=== PATIENT | female | born 2005 | race Caucasian/White ===

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

== ENCOUNTER → 2024-11-20 | Outpatient (CLI) | payer MEDICAID, OTHER | LOC: M RAD 13:30 | PROVIDERS: ATTEND Physician Assistant | DX: R07.89 Other chest pain (principal) ==

== ENCOUNTER 2025-07-21 15:23 | Emergency (ER) | payer MEDICAID ==
[~2025-07-21] VITALS: Ht 162.6 cm; Wt 41.9 kg
[2025-07-21 16:44] LABS: URINE PREG TEST NEGATIVE (NEGATIVE)
[2025-07-21] MEDS: MAALOX 30 ML SUSP *UDC PO ONE (17:16)
[2025-07-21] MEDS: LIDOCAINE VISCOUS 2% SOLN 15 ML UDC PO ONE (17:17)
[2025-07-21] MEDS: PANTOPRAZOLE 40MG VIAL IV ONE (17:17)
[2025-07-21] MEDS: SUCRALFATE SUSP 1GM/10ML UD PO ONE (17:17)
[2025-07-21 17:43] LABS: BASO # 0.1 10^3/uL (0.0-0.2); BASO % 0.7 % (0.0-1.0); EOS # 0.0 10^3/uL (0.0-0.5); EOS % 0.1 % (0.0-3.0); LYMPH # 2.3 10^3/uL (1.5-5.0); LYMPH % 26.5 % (24.0-44.0); MONO # 0.6 10^3/uL (0.0-0.8); MONO % 7.1 % (2.0-8.0); NEUTROPHILS # 5.6 10^3/uL (1.5-8.5); NEUTROPHILS % 65.2 % (36.0-66.0); PLATELET COUNT, AUTOMATED 232 10^3/uL (150-450)
[2025-07-21] MEDS ORDERED: ISOVUE-370 76% 100 ML VIAL As Ordered ONE (18:03)
[2025-07-21 18:09] LABS: CK-MB VALUE MASS < 1.0 NG/ML (<3.6); MAGNESIUM LEVEL 1.8 MG/DL (1.8-2.4)
[2025-07-21 18:12] LABS: CPK CREATINE PHOSPHOKINASE 115 U/L (34-145)
[2025-07-21 18:24] VITALS: O2SAT 100
[2025-07-21 18:25] VITALS: TEMP 99.4
[2025-07-21 18:48] VITALS: BP 118/62
[2025-07-21] MEDS ORDERED: OMEP40CA4 PO (19:27)
[2025-07-21] MEDS ORDERED: SUCR1TA PO (19:27)
[2025-07-21] MEDS ORDERED: ONDA-282 PO (19:27)
== END 2025-07-21 19:37 | disposition home or self-care (01) ==
LOC: M ED 15:23
DX: R07.9 Chest pain, unspecified (principal); K29.00 Acute gastritis without bleeding; I25.119 Atherosclerotic heart disease of native coronary artery with unspecified angina pectoris; Z88.0 Allergy status to penicillin; Z88.1 Allergy status to other antibiotic agents; Z79.899 Other long term (current) drug therapy
CPT/HCPCS: 71046; 71260; 80047; 82550; 82553; 83735; 84443; 84484; 84703; 85025; 93005; 96374; 99284; J2470; Q9967

== ENCOUNTER 2025-08-21 21:52 | Emergency (ER) | payer OTHER ==
[~2025-08-21] VITALS: Ht 162.6 cm; Wt 44.1 kg
[~2025-08-21 21:52] MED LIST changes: +OMEP40CA4 PO; +ONDA-282 PO; +SUCR1TA PO
[2025-08-21 22:22] VITALS: BP 133/88; TEMP 96.7; O2SAT 100
[2025-08-21 22:51] LABS: BASO # 0.1 10^3/uL (0.0-0.2); BASO % 0.4 % (0.0-1.0); EOS # 0.0 10^3/uL (0.0-0.5); EOS % 0.1 % (0.0-3.0); LYMPH # 3.0 10^3/uL (1.5-5.0); LYMPH % 19.5 % (24.0-44.0); MONO # 0.8 10^3/uL (0.0-0.8); MONO % 5.3 % (2.0-8.0); NEUTROPHILS # 11.4 10^3/uL (1.5-8.5); NEUTROPHILS % 74.3 % (36.0-66.0); PLATELET COUNT, AUTOMATED 276 10^3/uL (150-450)
[2025-08-21 23:22] LABS: ALT/SGPT 20 U/L (7.0-40); AST/SGOT 22 U/L (<34); CALCIUM LEVEL 10.9 MG/DL (8.5-10.1); CARBON DIOXIDE LEVEL 28 MMOL/L (20-31); CHLORIDE LEVEL 102 MMOL/L (98-107); CREATININE FOR GFR 0.73 MG/DL (0.55-1.30); GLOMERULAR FILTRATION RATE > 90.0 (>60); POTASSIUM SERUM 4.3 MMOL/L (3.5-5.1); SODIUM LEVEL 140 MMOL/L (136-145)
[2025-08-21 23:29] LABS: HCG, SERUM QUALITATIVE NEGATIVE (NEGATIVE)
[2025-08-23] MEDS ORDERED: DICY-61 PO (17:02)
[2025-08-23] MEDS ORDERED: ONDA-282 PO (17:02)
[2025-08-23] MEDS ORDERED: PROT20TA11 PO (17:02)
== END 2025-08-22 00:50 | disposition left against medical advice (07) ==
LOC: M ED 21:52
DX: Z53.21 Procedure and treatment not carried out due to patient leaving prior to being seen by health care provider (principal)

== ENCOUNTER 2025-08-23 13:45 | Emergency (ER) | payer OTHER ==
[~2025-08-23] VITALS: Ht 162.6 cm; Wt 42.7 kg
[2025-08-23 14:30] LABS: BASO # 0.1 10^3/uL (0.0-0.2); BASO % 0.9 % (0.0-1.0); EOS # 0.0 10^3/uL (0.0-0.5); EOS % 0.5 % (0.0-3.0); LYMPH # 2.5 10^3/uL (1.5-5.0); LYMPH % 30.8 % (24.0-44.0); MONO # 0.6 10^3/uL (0.0-0.8); MONO % 7.0 % (2.0-8.0); NEUTROPHILS # 4.9 10^3/uL (1.5-8.5); NEUTROPHILS % 60.5 % (36.0-66.0); PLATELET COUNT, AUTOMATED 250 10^3/uL (150-450)
[2025-08-23 14:42] LABS: KETONE, URINE AUTO RFX NEGATIVE (NEGATIVE); NITRITE, URINE AUTO RFX NEGATIVE (NEGATIVE); RBC, URINE AUTO RFX 1 /HPF (0-3); SQUAM EPITHELIAL CELL UR AURFX 11 /HPF (0-6); WBC, URINE AUTO RFX 5 /HPF (0-3)
[2025-08-23 14:46] LABS: LEUKOCYTE ESTERASE UR AUTO RFX 2+ (NEGATIVE)
[2025-08-23 14:54] LABS: ALT/SGPT 19 U/L (7.0-40); AST/SGOT 21 U/L (<34); CALCIUM LEVEL 9.7 MG/DL (8.5-10.1); CARBON DIOXIDE LEVEL 28 MMOL/L (20-31); CHLORIDE LEVEL 105 MMOL/L (98-107); CREATININE FOR GFR 0.72 MG/DL (0.55-1.30); GLOMERULAR FILTRATION RATE > 90.0 (>60); POTASSIUM SERUM 4.3 MMOL/L (3.5-5.1); SODIUM LEVEL 142 MMOL/L (136-145)
[2025-08-23 15:05] LABS: HCG, SERUM QUALITATIVE NEGATIVE (NEGATIVE)
[2025-08-23] MEDS: PANTOPRAZOLE 40MG TAB PO ONE (15:34)
[2025-08-23] MEDS: SUCRALFATE SUSP 1GM/10ML UD PO ONE (15:34)
[2025-08-23 16:54] VITALS: BP 110/70; TEMP 98.4; O2SAT 10
[2025-08-23] MEDS ORDERED: ONDA-282 PO (17:02)
[2025-08-23] MEDS ORDERED: DICY-61 PO (17:02)
[2025-08-23] MEDS ORDERED: PROT20TA11 PO (17:02)
== END 2025-08-23 17:09 | disposition home or self-care (01) ==
LOC: M ED 13:45
DX: R10.9 Unspecified abdominal pain (principal); R11.0 Nausea; Z88.0 Allergy status to penicillin; Z88.1 Allergy status to other antibiotic agents; Z79.899 Other long term (current) drug therapy